=== PATIENT | male | born 1960 | race Caucasian/White ===

== ENCOUNTER 2020-06-20 08:32 | Outpatient (CLI) | payer MEDICARE, MEDICAID, SELFPAY | END 2020-06-20 08:33 | disposition home or self-care (01) | LOC: ANHAUDIO 08:33 | PROVIDERS: PCP Internal Medicine; Visit Provider Internal Medicine | DX: Z01.10 Encounter for examination of ears and hearing without abnormal findings (principal); F79 Unspecified intellectual disabilities; I10 Essential (primary) hypertension | CPT/HCPCS: 92553; 92555; 92567 ==